=== PATIENT | male | born 1945 | race Caucasian/White ===

== ENCOUNTER 2021-12-31 08:25 | Inpatient (IN) | payer OTHER ==
[2021-12-31] MEDS ORDERED: ACETAMINOPHEN 325 MG TABLET (FP) PO ONE (09:21)
[2021-12-31] MEDS ORDERED: ACETAMINOPHEN 325 MG TABLET (FP) ONE (09:24)
[2021-12-31] MEDS ORDERED: LIDOCAINE 5% TOPICAL PATCH TP ONE (10:03)
[2021-12-31] MEDS ORDERED: LIDOCAINE 5% TOPICAL PATCH ONE (10:11)
[2021-12-31 10:25] LABS: PH,URINE 7.5 (5.0-8.0); URINE APPEARANCE CLOUDY; URINE BILIRUBIN NEGATIVE (NEGATIVE); URINE COLOR YELLOW; URINE GLUCOSE (UA) NEGATIVE (NEGATIVE); URINE KETONE NEGATIVE (NEGATIVE); URINE LEUK ESTERASE NEGATIVE (NEGATIVE); URINE NITRITE NEGATIVE (NEGATIVE); URINE PROTEIN NEGATIVE (NEGATIVE); URINE UROBILINOGEN 0.2 mg/dL (0.2-1.0)
[2021-12-31] MEDS ORDERED: SODIUM CHLORIDE 0.9% 500 ML INFUS.BAG IV ONE (10:29)
[2021-12-31 11:17] LABS: BASO % 0.5 % (0-2.0); EOS % 2.8 % (0-4.5); HEMATOCRIT 38.4 % (35.4-49); HEMOGLOBIN 13.4 GM/dL (11.7-16.9); LYMPH % 18.1 % (8-40); MCH 32.3 pg (25.7-33.7); MCHC 35.1 g/dl (32.0-35.9); MEAN CELL VOLUME 92.2 fl (80-96); MEAN PLT VOLUME 7.5 fl (7.5-11.1); NEUT % 70.6 % (42.8-82.8); PLATELET COUNT 172 10^3/uL (134-434); RBC 4.16 M/mm3 (4.00-5.60); RDW 14.1 % (11.9-15.9); WHITE BLOOD COUNT 9.2 K/mm3 (4.0-10.0)
[2021-12-31 11:40] LABS: BLOOD UREA NITROGEN 20.5 mg/dL (7-18); CALCIUM 9.1 mg/dL (8.5-10.1)
[2021-12-31 11:45] LABS: BILIRUBIN,TOTAL 0.7 mg/dL (0.2-1); TOT PROT 6.8 g/dl (6.4-8.2)
[2021-12-31] MEDS: ENOXAPARIN NA (PORCINE) 40 MG/0.4 ML DISP.SYRIN SQ SCH (14:40)
[2021-12-31] MEDS ORDERED: ENOXAPARIN NA (PORCINE) 40 MG/0.4 ML DISP.SYRIN SQ ONE (15:54)
[2021-12-31 17:20] LABS: MAGNESIUM 2.3 mg/dL (1.8-2.4)
[2021-12-31] MEDS ORDERED: LIDOCAINE PATCH REMOVAL MC ONE (22:00)
[2021-12-31] MEDS: clonazePAM 0.5 MG TABLET PO SCH (22:31)
[2021-12-31] MEDS: ATORVASTATIN CA 20 MG TABLET (FP) PO SCH (22:31)
[2021-12-31] MEDS: METOPROLOL TARTRATE 50 MG TABLET (FP) PO SCH (22:32)
[2022-01-01 03:38] VITALS: BMI 23.5
[2022-01-01] MEDS: TAMSULOSIN HCL 0.4 MG CAP PO SCH (08:20)
[2022-01-01 09:10] LABS: BASO % 0.5 % (0-2.0); EOS % 0.9 % (0-4.5); HEMATOCRIT 39.6 % (35.4-49); HEMOGLOBIN 13.8 GM/dL (11.7-16.9); LYMPH % 13.9 % (8-40); MEAN CELL VOLUME 91.6 fl (80-96); MEAN PLT VOLUME 7.6 fl (7.5-11.1); MONO % 9.4 % (3.8-10.2); NEUT % 75.3 % (42.8-82.8); PLATELET COUNT 202 10^3/uL (134-434); RBC 4.32 M/mm3 (4.00-5.60); RDW 14.3 % (11.9-15.9); WHITE BLOOD COUNT 11.3 K/mm3 (4.0-10.0)
[2022-01-01] MEDS: ENOXAPARIN NA (PORCINE) 40 MG/0.4 ML DISP.SYRIN SQ SCH (09:39)
[2022-01-01] MEDS: PANTOPRAZOLE 40 MG TABLET PO SCH (09:39)
[2022-01-01] MEDS: METOPROLOL TARTRATE 50 MG TABLET (FP) PO SCH ×2 (09:39→21:39)
[2022-01-01 10:20] LABS: BLOOD UREA NITROGEN 19.3 mg/dL (7-18)
[2022-01-01 10:21] LABS: ALBUMIN 4.5 g/dl (3.4-5.0)
[2022-01-01 10:23] LABS: CALCIUM 10.3 mg/dL (8.5-10.1); MAGNESIUM 2.6 mg/dL (1.8-2.4)
[2022-01-01 10:25] LABS: BILIRUBIN,TOTAL 1.1 mg/dL (0.2-1); TOT PROT 7.7 g/dl (6.4-8.2)
[2022-01-01 14:30] LABS: BILIRUBIN,DIRECT 0.2 mg/dL (0.0-0.2)
[2022-01-01] MEDS: clonazePAM 0.5 MG TABLET PO SCH (21:39)
[2022-01-01] MEDS: ATORVASTATIN CA 20 MG TABLET (FP) PO SCH (21:39)
[2022-01-02] MEDS: TAMSULOSIN HCL 0.4 MG CAP PO SCH (08:58)
[2022-01-02] MEDS: POLYETHYLENE GLYCOL (HEALTHYLAX) 3350 17 GM PACKET PO PRN (09:57)
[2022-01-02] MEDS: METOPROLOL TARTRATE 50 MG TABLET (FP) PO SCH ×2 (09:57→21:08)
[2022-01-02] MEDS: PANTOPRAZOLE 40 MG TABLET PO SCH (09:57)
[2022-01-02] MEDS: ENOXAPARIN NA (PORCINE) 40 MG/0.4 ML DISP.SYRIN SQ SCH (09:58)
[2022-01-02 10:58] LABS: BASO % 0.4 % (0-2.0); EOS % 0.3 % (0-4.5); HEMATOCRIT 45.3 % (35.4-49); HEMOGLOBIN 15.8 GM/dL (11.7-16.9); MCH 32.1 pg (25.7-33.7); MCHC 34.9 g/dl (32.0-35.9); MEAN CELL VOLUME 92.1 fl (80-96); MEAN PLT VOLUME 7.6 fl (7.5-11.1); MONO % 6.8 % (3.8-10.2); NEUT % 82.5 % (42.8-82.8); PLATELET COUNT 216 10^3/uL (134-434); RBC 4.92 M/mm3 (4.00-5.60); RDW 14.6 % (11.9-15.9); WHITE BLOOD COUNT 14.3 K/mm3 (4.0-10.0)
[2022-01-02] MEDS: amLODIPine BESYLATE 10 MG TABLET (FP) PO SCH (11:21)
[2022-01-02 11:31] LABS: ALBUMIN 4.5 g/dl (3.4-5.0); BLOOD UREA NITROGEN 26.2 mg/dL (7-18); CALCIUM 10.2 mg/dL (8.5-10.1); MAGNESIUM 2.5 mg/dL (1.8-2.4)
[2022-01-02 11:34] LABS: CREATININE 1.1 mg/dL (0.55-1.3); PHOSPHOROUS 2.9 mg/dL (2.5-4.9)
[2022-01-02 11:35] LABS: TOT PROT 8.1 g/dl (6.4-8.2)
[2022-01-02 11:36] LABS: BILIRUBIN,TOTAL 0.8 mg/dL (0.2-1)
[2022-01-02] MEDS ORDERED: LACTATED RINGERS SOLUTION 1,000 ML/1,000 ML INFUS.BAG IV SCH (15:30)
[2022-01-02 17:02] LABS: LACTIC ACID 2.7 mmol/L (0.4-2.0)
[2022-01-02] MEDS ORDERED: LACTATED RINGERS SOLUTION 1000 ML INFUS.BAG IV ONE ×2 (17:15→18:21)
[2022-01-02 19:11] LABS: LACTIC ACID 4.2 mmol/L (0.4-2.0)
[2022-01-02] MEDS: LACTATED RINGERS SOLUTION 1,000 ML/1,000 ML INFUS.BAG IV SCH (20:49)
[2022-01-02] MEDS: ERTAPENEM SODIUM 1 GM in SODIUM CHLORIDE 50 ML IVPB SCH (21:00)
[2022-01-02] MEDS: ATORVASTATIN CA 20 MG TABLET (FP) PO SCH (21:08)
[2022-01-02] MEDS: clonazePAM 0.5 MG TABLET PO SCH (21:08)
[2022-01-02] MEDS ORDERED: DOXYCYCLINE HYCLATE 100 MG VIAL ONE (21:09)
[2022-01-02] MEDS: SENNOSIDES 8.6MG TABLET (FP) PO SCH (21:10)
[2022-01-02] MEDS ORDERED: DEXTROSE 5%-WATER 100 ML IVPB ONE (21:10)
[2022-01-02] MEDS: hydrALAZINE HCL 25 MG TABLET (FP) PO SCH (21:10)
[2022-01-02] MEDS: DOXYCYCLINE INJECTION 100 MG in DEXTROSE 5%-WATER 100 ML IVPB SCH (21:54)
[2022-01-03] MEDS: hydrALAZINE HCL 25 MG TABLET (FP) PO SCH ×3 (05:18→22:18)
[2022-01-03] MEDS: LACTATED RINGERS SOLUTION 1,000 ML/1,000 ML INFUS.BAG IV SCH ×2 (09:32→22:03)
[2022-01-03] MEDS ORDERED: DOXYCYCLINE HYCLATE 100 MG VIAL ONE ×2 (10:10→22:05)
[2022-01-03] MEDS ORDERED: DEXTROSE 5%-WATER 100 ML IVPB ONE ×2 (10:10→22:05)
[2022-01-03] MEDS: DOXYCYCLINE INJECTION 100 MG in DEXTROSE 5%-WATER 100 ML IVPB SCH ×2 (10:12→22:18)
[2022-01-03] MEDS: PANTOPRAZOLE 40 MG TABLET PO SCH (10:12)
[2022-01-03] MEDS: amLODIPine BESYLATE 10 MG TABLET (FP) PO SCH (10:12)
[2022-01-03] MEDS: TAMSULOSIN HCL 0.4 MG CAP PO SCH (10:12)
[2022-01-03] MEDS: METOPROLOL TARTRATE 50 MG TABLET (FP) PO SCH ×2 (10:12→22:18)
[2022-01-03 10:47] LABS: HEMATOCRIT 43.2 % (35.4-49); HEMOGLOBIN 15.2 GM/dL (11.7-16.9); MCH 32.1 pg (25.7-33.7); MCHC 35.3 g/dl (32.0-35.9); MEAN PLT VOLUME 7.5 fl (7.5-11.1); PLATELET COUNT 213 10^3/uL (134-434); RBC 4.75 M/mm3 (4.00-5.60); RDW 14.6 % (11.9-15.9); WHITE BLOOD COUNT 15.6 K/mm3 (4.0-10.0)
[2022-01-03] MEDS: ENOXAPARIN NA (PORCINE) 40 MG/0.4 ML DISP.SYRIN SQ SCH (10:48)
[2022-01-03] MEDS: ERTAPENEM SODIUM 1 GM in SODIUM CHLORIDE 50 ML IVPB SCH (10:48)
[2022-01-03 11:48] LABS: ALBUMIN 4.1 g/dl (3.4-5.0); BLOOD UREA NITROGEN 33.3 mg/dL (7-18); CALCIUM 9.8 mg/dL (8.5-10.1); MAGNESIUM 2.4 mg/dL (1.8-2.4)
[2022-01-03 11:52] LABS: PHOSPHOROUS 2.8 mg/dL (2.5-4.9)
[2022-01-03 11:54] LABS: BILIRUBIN,TOTAL 0.8 mg/dL (0.2-1); TOT PROT 7.5 g/dl (6.4-8.2)
[2022-01-03] MEDS: clonazePAM 0.5 MG TABLET PO SCH (22:17)
[2022-01-03] MEDS: SENNOSIDES 8.6MG TABLET (FP) PO SCH (22:17)
[2022-01-03] MEDS: ATORVASTATIN CA 20 MG TABLET (FP) PO SCH (22:18)
[2022-01-04] MEDS: hydrALAZINE HCL 25 MG TABLET (FP) PO SCH ×3 (06:13→21:58)
[2022-01-04] MEDS: LACTATED RINGERS SOLUTION 1,000 ML/1,000 ML INFUS.BAG IV SCH (08:07)
[2022-01-04] MEDS ORDERED: DOXYCYCLINE HYCLATE 100 MG VIAL ONE ×2 (09:28→21:44)
[2022-01-04] MEDS ORDERED: DEXTROSE 5%-WATER 100 ML IVPB ONE ×2 (09:28→21:44)
[2022-01-04] MEDS: DOXYCYCLINE INJECTION 100 MG in DEXTROSE 5%-WATER 100 ML IVPB SCH ×2 (09:31→22:02)
[2022-01-04] MEDS: ERTAPENEM SODIUM 1 GM in SODIUM CHLORIDE 50 ML IVPB SCH (09:32)
[2022-01-04] MEDS: ENOXAPARIN NA (PORCINE) 40 MG/0.4 ML DISP.SYRIN SQ SCH (09:32)
[2022-01-04] MEDS: TAMSULOSIN HCL 0.4 MG CAP PO SCH (09:32)
[2022-01-04] MEDS: amLODIPine BESYLATE 10 MG TABLET (FP) PO SCH (09:32)
[2022-01-04] MEDS: METOPROLOL TARTRATE 50 MG TABLET (FP) PO SCH ×2 (09:32→21:59)
[2022-01-04] MEDS: PANTOPRAZOLE 40 MG TABLET PO SCH (09:32)
[2022-01-04 09:57] LABS: BASO % 0.8 % (0-2.0); EOS % 4.6 % (0-4.5); HEMATOCRIT 40.8 % (35.4-49); LYMPH % 15.8 % (8-40); MCH 31.6 pg (25.7-33.7); MCHC 34.4 g/dl (32.0-35.9); MEAN PLT VOLUME 7.8 fl (7.5-11.1); MONO % 8.8 % (3.8-10.2); PLATELET COUNT 218 10^3/uL (134-434); RBC 4.44 M/mm3 (4.00-5.60); RDW 14.3 % (11.9-15.9); WHITE BLOOD COUNT 13.8 K/mm3 (4.0-10.0)
[2022-01-04 10:17] LABS: BLOOD UREA NITROGEN 35.5 mg/dL (7-18)
[2022-01-04 10:20] LABS: CALCIUM 9.3 mg/dL (8.5-10.1); CREATININE 1.1 mg/dL (0.55-1.3); MAGNESIUM 2.2 mg/dL (1.8-2.4)
[2022-01-04] MEDS: clonazePAM 0.5 MG TABLET PO SCH (21:59)
[2022-01-04] MEDS: SENNOSIDES 8.6MG TABLET (FP) PO SCH (21:59)
[2022-01-04] MEDS: ATORVASTATIN CA 20 MG TABLET (FP) PO SCH (21:59)
[2022-01-05] MEDS: LACTATED RINGERS SOLUTION 1,000 ML/1,000 ML INFUS.BAG IV SCH ×3 (02:19→20:50)
[2022-01-05] MEDS: hydrALAZINE HCL 25 MG TABLET (FP) PO SCH ×3 (06:04→21:14)
[2022-01-05] MEDS: TAMSULOSIN HCL 0.4 MG CAP PO SCH (09:04)
[2022-01-05] MEDS ORDERED: DEXTROSE 5%-WATER 100 ML IVPB ONE ×2 (09:58→20:57)
[2022-01-05] MEDS ORDERED: DOXYCYCLINE HYCLATE 100 MG VIAL ONE ×2 (09:58→20:57)
[2022-01-05 10:02] LABS: BASO % 0.6 % (0-2.0); EOS % 6.9 % (0-4.5); HEMATOCRIT 40.1 % (35.4-49); HEMOGLOBIN 14.1 GM/dL (11.7-16.9); LYMPH % 18.2 % (8-40); MCH 31.8 pg (25.7-33.7); MCHC 35.1 g/dl (32.0-35.9); MEAN CELL VOLUME 90.7 fl (80-96); MEAN PLT VOLUME 7.7 fl (7.5-11.1); MONO % 6.6 % (3.8-10.2); NEUT % 67.7 % (42.8-82.8); PLATELET COUNT 211 10^3/uL (134-434); RBC 4.42 M/mm3 (4.00-5.60); RDW 14.5 % (11.9-15.9); WHITE BLOOD COUNT 11.3 K/mm3 (4.0-10.0)
[2022-01-05] MEDS: DOXYCYCLINE INJECTION 100 MG in DEXTROSE 5%-WATER 100 ML IVPB SCH ×2 (10:02→21:14)
[2022-01-05] MEDS: ENOXAPARIN NA (PORCINE) 40 MG/0.4 ML DISP.SYRIN SQ SCH (10:04)
[2022-01-05] MEDS: PANTOPRAZOLE 40 MG TABLET PO SCH (10:04)
[2022-01-05] MEDS: POLYETHYLENE GLYCOL (HEALTHYLAX) 3350 17 GM PACKET PO PRN (10:04)
[2022-01-05] MEDS: METOPROLOL TARTRATE 50 MG TABLET (FP) PO SCH ×2 (10:04→21:14)
[2022-01-05] MEDS: amLODIPine BESYLATE 10 MG TABLET (FP) PO SCH (10:04)
[2022-01-05] MEDS: ERTAPENEM SODIUM 1 GM in SODIUM CHLORIDE 50 ML IVPB SCH (10:05)
[2022-01-05 10:21] LABS: BLOOD UREA NITROGEN 27.7 mg/dL (7-18); CALCIUM 9.5 mg/dL (8.5-10.1); MAGNESIUM 2.2 mg/dL (1.8-2.4)
[2022-01-05 10:24] LABS: CREATININE 1.1 mg/dL (0.55-1.3); PHOSPHOROUS 3.2 mg/dL (2.5-4.9)
[2022-01-05] MEDS ORDERED: POTASSIUM CHLORIDE TABS 20 MEQ TABLET.ER (FP) PO ONE (16:57)
[2022-01-05] MEDS: SENNOSIDES 8.6MG TABLET (FP) PO SCH (21:14)
[2022-01-05] MEDS: ATORVASTATIN CA 20 MG TABLET (FP) PO SCH (21:14)
[2022-01-05] MEDS: clonazePAM 0.5 MG TABLET PO SCH (21:14)
[2022-01-06] MEDS: hydrALAZINE HCL 25 MG TABLET (FP) PO SCH ×3 (06:10→21:33)
[2022-01-06 08:43] LABS: BASO % 0.7 % (0-2.0); HEMATOCRIT 40.3 % (35.4-49); MCH 31.8 pg (25.7-33.7); MCHC 34.7 g/dl (32.0-35.9); MEAN CELL VOLUME 91.5 fl (80-96); MEAN PLT VOLUME 7.7 fl (7.5-11.1); MONO % 9.4 % (3.8-10.2); NEUT % 64.9 % (42.8-82.8); PLATELET COUNT 210 10^3/uL (134-434); RBC 4.41 M/mm3 (4.00-5.60); RDW 14.1 % (11.9-15.9); WHITE BLOOD COUNT 11.2 K/mm3 (4.0-10.0)
[2022-01-06 09:20] LABS: CALCIUM 9.5 mg/dL (8.5-10.1); MAGNESIUM 2.3 mg/dL (1.8-2.4)
[2022-01-06 09:23] LABS: CREATININE 0.9 mg/dL (0.55-1.3); PHOSPHOROUS 3.5 mg/dL (2.5-4.9)
[2022-01-06] MEDS ORDERED: DOXYCYCLINE HYCLATE 100 MG VIAL ONE ×2 (09:31→21:16)
[2022-01-06] MEDS ORDERED: DEXTROSE 5%-WATER 100 ML IVPB ONE ×2 (09:31→21:17)
[2022-01-06] MEDS: PANTOPRAZOLE 40 MG TABLET PO SCH (09:32)
[2022-01-06] MEDS: ENOXAPARIN NA (PORCINE) 40 MG/0.4 ML DISP.SYRIN SQ SCH (09:33)
[2022-01-06] MEDS: METOPROLOL TARTRATE 50 MG TABLET (FP) PO SCH ×2 (09:33→21:33)
[2022-01-06] MEDS: TAMSULOSIN HCL 0.4 MG CAP PO SCH (09:33)
[2022-01-06] MEDS: DOXYCYCLINE INJECTION 100 MG in DEXTROSE 5%-WATER 100 ML IVPB SCH ×2 (09:33→21:33)
[2022-01-06] MEDS: amLODIPine BESYLATE 10 MG TABLET (FP) PO SCH (09:33)
[2022-01-06] MEDS: ERTAPENEM SODIUM 1 GM in SODIUM CHLORIDE 50 ML IVPB SCH (11:05)
[2022-01-06] MEDS: LACTATED RINGERS SOLUTION 1,000 ML/1,000 ML INFUS.BAG IV SCH ×2 (11:25→12:38)
[2022-01-06] MEDS ORDERED: POTASSIUM CHLORIDE TABS 20 MEQ TABLET.ER (FP) PO ONE (11:46)
[2022-01-06] MEDS: SENNOSIDES 8.6MG TABLET (FP) PO SCH (21:33)
[2022-01-06] MEDS: ATORVASTATIN CA 20 MG TABLET (FP) PO SCH (21:33)
[2022-01-06] MEDS: clonazePAM 0.5 MG TABLET PO SCH (21:33)
[2022-01-07] MEDS: hydrALAZINE HCL 25 MG TABLET (FP) PO SCH ×3 (05:13→22:45)
[2022-01-07] MEDS ORDERED: DEXTROSE 5%-WATER 100 ML IVPB ONE ×2 (09:22→22:22)
[2022-01-07] MEDS ORDERED: DOXYCYCLINE HYCLATE 100 MG VIAL ONE ×2 (09:22→22:22)
[2022-01-07] MEDS: METOPROLOL TARTRATE 50 MG TABLET (FP) PO SCH ×2 (09:33→22:46)
[2022-01-07] MEDS: TAMSULOSIN HCL 0.4 MG CAP PO SCH (09:33)
[2022-01-07] MEDS: amLODIPine BESYLATE 10 MG TABLET (FP) PO SCH (09:33)
[2022-01-07] MEDS: PANTOPRAZOLE 40 MG TABLET PO SCH (09:33)
[2022-01-07] MEDS: ENOXAPARIN NA (PORCINE) 40 MG/0.4 ML DISP.SYRIN SQ SCH (09:34)
[2022-01-07] MEDS: DOXYCYCLINE INJECTION 100 MG in DEXTROSE 5%-WATER 100 ML IVPB SCH ×2 (09:34→22:46)
[2022-01-07 10:27] LABS: HEMATOCRIT 41.6 % (35.4-49); HEMOGLOBIN 14.1 GM/dL (11.7-16.9); MCH 31.3 pg (25.7-33.7); MEAN CELL VOLUME 92.2 fl (80-96); MEAN PLT VOLUME 8.1 fl (7.5-11.1); PLATELET COUNT 226 10^3/uL (134-434); RBC 4.52 M/mm3 (4.00-5.60); RDW 14.1 % (11.9-15.9); WHITE BLOOD COUNT 11.4 K/mm3 (4.0-10.0)
[2022-01-07] MEDS: ERTAPENEM SODIUM 1 GM in SODIUM CHLORIDE 50 ML IVPB SCH (11:01)
[2022-01-07 11:02] LABS: CALCIUM 9.8 mg/dL (8.5-10.1)
[2022-01-07 11:03] LABS: BLOOD UREA NITROGEN 23.4 mg/dL (7-18)
[2022-01-07 11:06] LABS: CREATININE 0.9 mg/dL (0.55-1.3)
[2022-01-07] MEDS: LACTATED RINGERS SOLUTION 1,000 ML/1,000 ML INFUS.BAG IV SCH (18:39)
[2022-01-07] MEDS: ATORVASTATIN CA 20 MG TABLET (FP) PO SCH (22:45)
[2022-01-07] MEDS: SENNOSIDES 8.6MG TABLET (FP) PO SCH (22:46)
[2022-01-08] MEDS: hydrALAZINE HCL 25 MG TABLET (FP) PO SCH ×3 (06:22→21:43)
[2022-01-08] MEDS ORDERED: DOXYCYCLINE HYCLATE 100 MG VIAL ONE ×2 (09:29→21:31)
[2022-01-08] MEDS ORDERED: DEXTROSE 5%-WATER 100 ML IVPB ONE ×2 (09:30→21:31)
[2022-01-08] MEDS: amLODIPine BESYLATE 10 MG TABLET (FP) PO SCH (09:44)
[2022-01-08] MEDS: ENOXAPARIN NA (PORCINE) 40 MG/0.4 ML DISP.SYRIN SQ SCH (09:44)
[2022-01-08] MEDS: ERTAPENEM SODIUM 1 GM in SODIUM CHLORIDE 50 ML IVPB SCH (09:44)
[2022-01-08] MEDS: METOPROLOL TARTRATE 50 MG TABLET (FP) PO SCH ×2 (09:45→21:43)
[2022-01-08] MEDS: PANTOPRAZOLE 40 MG TABLET PO SCH (09:45)
[2022-01-08] MEDS: TAMSULOSIN HCL 0.4 MG CAP PO SCH (09:45)
[2022-01-08 09:59] LABS: HEMATOCRIT 42.1 % (35.4-49); HEMOGLOBIN 14.3 GM/dL (11.7-16.9); MCH 31.2 pg (25.7-33.7); MEAN CELL VOLUME 91.9 fl (80-96); MEAN PLT VOLUME 7.7 fl (7.5-11.1); PLATELET COUNT 233 10^3/uL (134-434); RBC 4.58 M/mm3 (4.00-5.60); RDW 14.4 % (11.9-15.9); WHITE BLOOD COUNT 13.5 K/mm3 (4.0-10.0)
[2022-01-08 10:15] LABS: CALCIUM 9.7 mg/dL (8.5-10.1)
[2022-01-08 10:16] LABS: ALBUMIN 3.8 g/dl (3.4-5.0); BLOOD UREA NITROGEN 21.3 mg/dL (7-18)
[2022-01-08 10:19] LABS: CREATININE 0.9 mg/dL (0.55-1.3)
[2022-01-08 10:20] LABS: BILIRUBIN,TOTAL 0.8 mg/dL (0.2-1); TOT PROT 6.8 g/dl (6.4-8.2)
[2022-01-08] MEDS: DOXYCYCLINE INJECTION 100 MG in DEXTROSE 5%-WATER 100 ML IVPB SCH ×2 (10:41→21:44)
[2022-01-08] MEDS: LACTATED RINGERS SOLUTION 1,000 ML/1,000 ML INFUS.BAG IV SCH (13:14)
[2022-01-08] MEDS: SENNOSIDES 8.6MG TABLET (FP) PO SCH (21:43)
[2022-01-08] MEDS: ATORVASTATIN CA 20 MG TABLET (FP) PO SCH (21:43)
[2022-01-09] MEDS: hydrALAZINE HCL 25 MG TABLET (FP) PO SCH ×3 (06:07→21:03)
[2022-01-09 08:31] LABS: BASO % 0.6 % (0-2.0); EOS % 3.6 % (0-4.5); HEMATOCRIT 39.9 % (35.4-49); HEMOGLOBIN 13.7 GM/dL (11.7-16.9); LYMPH % 13.2 % (8-40); MCH 31.6 pg (25.7-33.7); MCHC 34.3 g/dl (32.0-35.9); MEAN CELL VOLUME 92.1 fl (80-96); MONO % 8.2 % (3.8-10.2); NEUT % 74.4 % (42.8-82.8); PLATELET COUNT 203 10^3/uL (134-434); RBC 4.34 M/mm3 (4.00-5.60); RDW 14.2 % (11.9-15.9); WHITE BLOOD COUNT 11.2 K/mm3 (4.0-10.0)
[2022-01-09 08:45] LABS: CALCIUM 9.7 mg/dL (8.5-10.1)
[2022-01-09 08:46] LABS: BLOOD UREA NITROGEN 27.4 mg/dL (7-18); MAGNESIUM 2.3 mg/dL (1.8-2.4)
[2022-01-09 08:49] LABS: CREATININE 0.9 mg/dL (0.55-1.3); PHOSPHOROUS 3.3 mg/dL (2.5-4.9)
[2022-01-09] MEDS: TAMSULOSIN HCL 0.4 MG CAP PO SCH (09:29)
[2022-01-09] MEDS: PANTOPRAZOLE 40 MG TABLET PO SCH (09:30)
[2022-01-09] MEDS: ENOXAPARIN NA (PORCINE) 40 MG/0.4 ML DISP.SYRIN SQ SCH (09:30)
[2022-01-09] MEDS: amLODIPine BESYLATE 10 MG TABLET (FP) PO SCH (09:30)
[2022-01-09] MEDS: ERTAPENEM SODIUM 1 GM in SODIUM CHLORIDE 50 ML IVPB SCH (09:30)
[2022-01-09] MEDS: METOPROLOL TARTRATE 50 MG TABLET (FP) PO SCH ×2 (09:30→21:03)
[2022-01-09] MEDS ORDERED: DOXYCYCLINE HYCLATE 100 MG VIAL ONE (10:18)
[2022-01-09] MEDS ORDERED: DEXTROSE 5%-WATER 100 ML IVPB ONE (10:18)
[2022-01-09] MEDS: DOXYCYCLINE INJECTION 100 MG in DEXTROSE 5%-WATER 100 ML IVPB SCH (10:35)
[2022-01-09] MEDS: SENNOSIDES 8.6MG TABLET (FP) PO SCH (21:03)
[2022-01-09] MEDS: ATORVASTATIN CA 20 MG TABLET (FP) PO SCH (21:03)
[2022-01-10 02:23] LABS: PH,URINE 6.5 (5.0-8.0); URINE APPEARANCE CLEAR; URINE BILIRUBIN NEGATIVE (NEGATIVE); URINE COLOR YELLOW; URINE GLUCOSE (UA) NEGATIVE (NEGATIVE); URINE KETONE NEGATIVE (NEGATIVE); URINE LEUK ESTERASE NEGATIVE (NEGATIVE); URINE NITRITE NEGATIVE (NEGATIVE); URINE PROTEIN NEGATIVE (NEGATIVE); URINE UROBILINOGEN 0.2 mg/dL (0.2-1.0)
[2022-01-10] MEDS: hydrALAZINE HCL 25 MG TABLET (FP) PO SCH ×2 (05:39→14:13)
[2022-01-10] MEDS: amLODIPine BESYLATE 10 MG TABLET (FP) PO SCH (09:11)
[2022-01-10] MEDS: PANTOPRAZOLE 40 MG TABLET PO SCH (09:11)
[2022-01-10] MEDS: ENOXAPARIN NA (PORCINE) 40 MG/0.4 ML DISP.SYRIN SQ SCH (09:11)
[2022-01-10] MEDS: TAMSULOSIN HCL 0.4 MG CAP PO SCH (09:11)
[2022-01-10] MEDS: METOPROLOL TARTRATE 50 MG TABLET (FP) PO SCH (09:11)
[2022-01-10 14:11] VITALS: BP 119/71; PULSE 79
[2022-01-10 14:23] VITALS: TEMP 98
== END 2022-01-10 16:00 | disposition home or self-care (01) | DRG 871 ==
LOC: JER 08:25 → JERBED 13:55 → J6S 21:02 → OBSVTOIN 01-03 09:20
PROVIDERS: ADMIT Internal Medicine; ATTEND Internal Medicine
DX: A41.89 Other specified sepsis (principal); J18.9 Pneumonia, unspecified organism; I42.1 Obstructive hypertrophic cardiomyopathy; S60.222A Contusion of left hand, initial encounter; S60.221A Contusion of right hand, initial encounter; F03.90 Unspecified dementia, unspecified severity, without behavioral disturbance, psychotic disturbance, mood disturbance, and anxiety; I49.3 Ventricular premature depolarization; I10 Essential (primary) hypertension; E78.5 Hyperlipidemia, unspecified; K59.00 Constipation, unspecified; D72.829 Elevated white blood cell count, unspecified; H91.93 Unspecified hearing loss, bilateral; I34.0 Nonrheumatic mitral (valve) insufficiency; W01.0XXA Fall on same level from slipping, tripping and stumbling without subsequent striking against object, initial encounter; Y92.098 Other place in other non-institutional residence as the place of occurrence of the external cause
CPT/HCPCS: 0241U-QW; 36415; 70450-TC; 71045-TC-FY; 71111-TC-FY; 71250-TC; 72125-TC; 80048; 80053; 81003; 82248; 82550; 82607; 83605; 83735; 84100; 84443; 85025; 85027; 87040; 87086; 93005; 93010; 93306-TC; 94010; 97116-GP; 97162-GP; 99285-25; C9803-CS; G0378; U0003; U0005

== ENCOUNTER 2022-01-12 15:40 | Inpatient (IN) | payer OTHER ==
[2022-01-12 16:32] VITALS: BMI 29.5
[2022-01-12] MEDS ORDERED: SODIUM CHLORIDE 0.9% 500 ML INFUS.BAG IV ONE ×2 (17:02→18:31)
[2022-01-12 17:06] LABS: EOS % 2.5 % (0-4.5); HEMATOCRIT 37.9 % (35.4-49); HEMOGLOBIN 12.7 GM/dL (11.7-16.9); LYMPH % 12.3 % (8-40); MCH 31.1 pg (25.7-33.7); MCHC 33.6 g/dl (32.0-35.9); MEAN CELL VOLUME 92.4 fl (80-96); MEAN PLT VOLUME 8.1 fl (7.5-11.1); NEUT % 76.2 % (42.8-82.8); PLATELET COUNT 238 10^3/uL (134-434); RDW 13.8 % (11.9-15.9); URINE APPEARANCE CLEAR; URINE BILIRUBIN NEGATIVE (NEGATIVE); URINE COLOR YELLOW; URINE GLUCOSE (UA) NEGATIVE (NEGATIVE); URINE KETONE NEGATIVE (NEGATIVE); URINE LEUK ESTERASE NEGATIVE (NEGATIVE); URINE NITRITE NEGATIVE (NEGATIVE); URINE PROTEIN NEGATIVE (NEGATIVE); URINE UROBILINOGEN 0.2 mg/dL (0.2-1.0); WHITE BLOOD COUNT 12.3 K/mm3 (4.0-10.0)
[2022-01-12 17:19] LABS: INR 1.16 (0.83-1.09); PROTHROMBIN TIME (PATIENT) 13.4 SEC (9.7-13.0)
[2022-01-12 17:28] LABS: CALCIUM 9.6 mg/dL (8.5-10.1)
[2022-01-12 17:29] LABS: ALBUMIN 3.7 g/dl (3.4-5.0); MAGNESIUM 2.6 mg/dL (1.8-2.4)
[2022-01-12 17:32] LABS: CREATININE 1.9 mg/dL (0.55-1.3)
[2022-01-12 17:34] LABS: BILIRUBIN,TOTAL 0.6 mg/dL (0.2-1); TOT PROT 6.5 g/dl (6.4-8.2)
[2022-01-12 17:39] LABS: BLOOD UREA NITROGEN 53.2 mg/dL (7-18)
[2022-01-12] MEDS ORDERED: ACETAMINOPHEN 325 MG TABLET (FP) PO PRN (21:24)
[2022-01-12] MEDS ORDERED: SODIUM CHLORIDE 1,000 ML IV SCH (21:45)
[2022-01-12] MEDS ORDERED: DOCUSATE SODIUM 100 MG CAPSULE (FP) PO SCH (22:00)
[2022-01-12] MEDS ORDERED: METOPROLOL TARTRATE 50 MG TABLET (FP) PO SCH (22:00)
[2022-01-12] MEDS ORDERED: ATORVASTATIN CA 20 MG TABLET (FP) ONE (22:51)
[2022-01-12] MEDS ORDERED: MELATONIN 5 MG TABLETS ONE (22:51)
[2022-01-12] MEDS ORDERED: METOPROLOL TARTRATE 50 MG TABLET (FP) ONE (22:51)
[2022-01-12] MEDS ORDERED: DOCUSATE SODIUM 100 MG CAPSULE (FP) PO ONE (22:52)
[2022-01-12] MEDS ORDERED: HEPARIN NA (PORCINE) 5,000 UNITS/ML 1ML VIAL ONE (22:52)
[2022-01-12] MEDS: HEPARIN NA (PORCINE) 5,000 UNITS/ML 1ML VIAL SQ SCH ×2 (23:06→23:10)
[2022-01-12] MEDS: MELATONIN 5 MG TABLETS PO SCH (23:07)
[2022-01-12] MEDS: ATORVASTATIN CA 20 MG TABLET (FP) PO SCH (23:07)
[2022-01-12] MEDS: METOPROLOL TARTRATE 50 MG TABLET (FP) PO SCH (23:07)
[2022-01-13] MEDS ORDERED: HEPARIN NA (PORCINE) 5,000 UNITS/ML 1ML VIAL ONE ×2 (06:18→13:40)
[2022-01-13] MEDS: HEPARIN NA (PORCINE) 5,000 UNITS/ML 1ML VIAL SQ SCH ×3 (06:26→21:24)
[2022-01-13] MEDS ORDERED: LACTATED RINGERS SOLUTION 1,000 ML/1,000 ML INFUS.BAG IV SCH (07:00)
[2022-01-13] MEDS ORDERED: POLYETHYLENE GLYCOL (HEALTHYLAX) 3350 17 GM PACKET PO PRN (07:04)
[2022-01-13] MEDS ORDERED: TAMSULOSIN HCL 0.4 MG CAP ONE (07:47)
[2022-01-13 07:51] LABS: BASO % 0.6 % (0-2.0); EOS % 4.1 % (0-4.5); HEMATOCRIT 35.9 % (35.4-49); LYMPH % 14.9 % (8-40); MCH 30.5 pg (25.7-33.7); MCHC 33.4 g/dl (32.0-35.9); MEAN CELL VOLUME 91.6 fl (80-96); MEAN PLT VOLUME 8.2 fl (7.5-11.1); MONO % 8.4 % (3.8-10.2); PLATELET COUNT 224 10^3/uL (134-434); RBC 3.92 M/mm3 (4.00-5.60); RDW 13.7 % (11.9-15.9); WHITE BLOOD COUNT 11.3 K/mm3 (4.0-10.0)
[2022-01-13] MEDS: TAMSULOSIN HCL 0.4 MG CAP PO SCH (07:55)
[2022-01-13 08:22] LABS: ALBUMIN 3.4 g/dl (3.4-5.0); CALCIUM 9.1 mg/dL (8.5-10.1); MAGNESIUM 2.5 mg/dL (1.8-2.4)
[2022-01-13 08:23] LABS: BLOOD UREA NITROGEN 35.8 mg/dL (7-18)
[2022-01-13 08:26] LABS: BILIRUBIN,TOTAL 0.7 mg/dL (0.2-1); CREATININE 1.3 mg/dL (0.55-1.3)
[2022-01-13] MEDS ORDERED: amLODIPine BESYLATE 10 MG TABLET (FP) PO SCH (10:00)
[2022-01-13] MEDS ORDERED: PANTOPRAZOLE 40 MG TABLET PO ONE (10:30)
[2022-01-13] MEDS ORDERED: ASPIRIN 81 MG CHEWABLE TABLETS ONE (10:31)
[2022-01-13] MEDS ORDERED: amLODIPine BESYLATE 10 MG TABLET (FP) ONE (10:31)
[2022-01-13] MEDS ORDERED: METOPROLOL TARTRATE 50 MG TABLET (FP) ONE (10:31)
[2022-01-13] MEDS: ASPIRIN 81 MG CHEWABLE TABLETS PO SCH (10:54)
[2022-01-13] MEDS: PANTOPRAZOLE 40 MG TABLET PO SCH (10:54)
[2022-01-13] MEDS: amLODIPine BESYLATE 10 MG TABLET (FP) PO SCH ×2 (12:00→13:31)
[2022-01-13] MEDS: METOPROLOL TARTRATE 50 MG TABLET (FP) PO SCH ×3 (12:00→21:23)
[2022-01-13] MEDS: LACTATED RINGERS SOLUTION 1,000 ML/1,000 ML INFUS.BAG IV SCH (15:30)
[2022-01-13] MEDS: ATORVASTATIN CA 20 MG TABLET (FP) PO SCH (21:22)
[2022-01-13] MEDS: MELATONIN 5 MG TABLETS PO SCH (21:23)
[2022-01-14] MEDS: HEPARIN NA (PORCINE) 5,000 UNITS/ML 1ML VIAL SQ SCH ×3 (06:17→21:30)
[2022-01-14] MEDS: TAMSULOSIN HCL 0.4 MG CAP PO SCH (06:17)
[2022-01-14] MEDS: LACTATED RINGERS SOLUTION 1,000 ML/1,000 ML INFUS.BAG IV SCH ×2 (06:21→18:26)
[2022-01-14 06:50] LABS: BASO % 0.7 % (0-2.0); HEMATOCRIT 38.1 % (35.4-49); HEMOGLOBIN 13.2 GM/dL (11.7-16.9); LYMPH % 16.7 % (8-40); MCH 32.1 pg (25.7-33.7); MCHC 34.8 g/dl (32.0-35.9); MEAN CELL VOLUME 92.3 fl (80-96); MEAN PLT VOLUME 9.2 fl (7.5-11.1); MONO % 6.8 % (3.8-10.2); NEUT % 69.8 % (42.8-82.8); PLATELET COUNT 196 10^3/uL (134-434); RBC 4.12 M/mm3 (4.00-5.60); RDW 13.8 % (11.9-15.9); WHITE BLOOD COUNT 10.9 K/mm3 (4.0-10.0)
[2022-01-14 07:10] LABS: BLOOD UREA NITROGEN 18.1 mg/dL (7-18); CALCIUM 9.3 mg/dL (8.5-10.1)
[2022-01-14 07:11] LABS: ALBUMIN 3.4 g/dl (3.4-5.0); MAGNESIUM 2.3 mg/dL (1.8-2.4)
[2022-01-14 07:13] LABS: CREATININE 0.9 mg/dL (0.55-1.3); PHOSPHOROUS 2.5 mg/dL (2.5-4.9)
[2022-01-14 07:14] LABS: BILIRUBIN,TOTAL 0.8 mg/dL (0.2-1); TOT PROT 6.6 g/dl (6.4-8.2)
[2022-01-14] MEDS: METOPROLOL TARTRATE 50 MG TABLET (FP) PO SCH ×2 (09:54→21:30)
[2022-01-14] MEDS: PANTOPRAZOLE 40 MG TABLET PO SCH (09:54)
[2022-01-14] MEDS: amLODIPine BESYLATE 10 MG TABLET (FP) PO SCH (09:54)
[2022-01-14] MEDS: ASPIRIN 81 MG CHEWABLE TABLETS PO SCH (09:54)
[2022-01-14] MEDS: ATORVASTATIN CA 20 MG TABLET (FP) PO SCH (21:30)
[2022-01-14] MEDS: SENNOSIDES 8.6MG TABLET (FP) PO PRN (21:30)
[2022-01-14] MEDS: MELATONIN 5 MG TABLETS PO SCH (21:30)
[2022-01-15] MEDS: LACTATED RINGERS SOLUTION 1,000 ML/1,000 ML INFUS.BAG IV SCH (04:55)
[2022-01-15] MEDS: TAMSULOSIN HCL 0.4 MG CAP PO SCH (06:06)
[2022-01-15] MEDS: HEPARIN NA (PORCINE) 5,000 UNITS/ML 1ML VIAL SQ SCH ×3 (06:06→22:11)
[2022-01-15 08:32] LABS: BASO % 1.1 % (0-2.0); EOS % 4.1 % (0-4.5); HEMATOCRIT 38.8 % (35.4-49); HEMOGLOBIN 13.5 GM/dL (11.7-16.9); LYMPH % 19.1 % (8-40); MCH 31.3 pg (25.7-33.7); MCHC 34.7 g/dl (32.0-35.9); MEAN CELL VOLUME 90.1 fl (80-96); MEAN PLT VOLUME 8.4 fl (7.5-11.1); MONO % 6.7 % (3.8-10.2); PLATELET COUNT 265 10^3/uL (134-434); RDW 13.7 % (11.9-15.9); WHITE BLOOD COUNT 11.5 K/mm3 (4.0-10.0)
[2022-01-15 08:43] LABS: CALCIUM 9.7 mg/dL (8.5-10.1)
[2022-01-15 08:44] LABS: BLOOD UREA NITROGEN 15.2 mg/dL (7-18)
[2022-01-15 08:48] LABS: CREATININE 0.9 mg/dL (0.55-1.3)
[2022-01-15] MEDS: amLODIPine BESYLATE 5 MG TABLET (FP) PO SCH (10:48)
[2022-01-15] MEDS: ASPIRIN 81 MG CHEWABLE TABLETS PO SCH (10:48)
[2022-01-15] MEDS: PANTOPRAZOLE 40 MG TABLET PO SCH (10:48)
[2022-01-15] MEDS: LISINOPRIL 10 MG TABLET PO SCH (10:48)
[2022-01-15] MEDS: METOPROLOL TARTRATE 50 MG TABLET (FP) PO SCH ×2 (10:48→22:11)
[2022-01-15] MEDS: ATORVASTATIN CA 20 MG TABLET (FP) PO SCH (22:11)
[2022-01-15] MEDS: MELATONIN 5 MG TABLETS PO SCH (22:11)
[2022-01-16] MEDS: TAMSULOSIN HCL 0.4 MG CAP PO SCH (06:20)
[2022-01-16] MEDS: HEPARIN NA (PORCINE) 5,000 UNITS/ML 1ML VIAL SQ SCH ×3 (06:20→22:19)
[2022-01-16 06:43] LABS: HEMATOCRIT 33.8 % (35.4-49); HEMOGLOBIN 12.1 GM/dL (11.7-16.9); MCH 31.9 pg (25.7-33.7); MCHC 35.8 g/dl (32.0-35.9); MEAN CELL VOLUME 89.2 fl (80-96); MEAN PLT VOLUME 7.8 fl (7.5-11.1); PLATELET COUNT 265 10^3/uL (134-434); RDW 13.8 % (11.9-15.9); WHITE BLOOD COUNT 10.5 K/mm3 (4.0-10.0)
[2022-01-16 07:04] LABS: CALCIUM 9.2 mg/dL (8.5-10.1)
[2022-01-16] MEDS: ASPIRIN 81 MG CHEWABLE TABLETS PO SCH (10:09)
[2022-01-16] MEDS: PANTOPRAZOLE 40 MG TABLET PO SCH (10:09)
[2022-01-16] MEDS: METOPROLOL TARTRATE 50 MG TABLET (FP) PO SCH ×2 (10:09→22:19)
[2022-01-16] MEDS: LISINOPRIL 10 MG TABLET PO SCH (10:09)
[2022-01-16] MEDS: amLODIPine BESYLATE 5 MG TABLET (FP) PO SCH (10:09)
[2022-01-16] MEDS: ATORVASTATIN CA 20 MG TABLET (FP) PO SCH (22:19)
[2022-01-16] MEDS: MELATONIN 5 MG TABLETS PO SCH (22:20)
[2022-01-17] MEDS: TAMSULOSIN HCL 0.4 MG CAP PO SCH (06:47)
[2022-01-17] MEDS: HEPARIN NA (PORCINE) 5,000 UNITS/ML 1ML VIAL SQ SCH ×3 (06:47→22:26)
[2022-01-17 08:53] LABS: HEMATOCRIT 37.8 % (35.4-49); HEMOGLOBIN 13.2 GM/dL (11.7-16.9); MCH 31.8 pg (25.7-33.7); MEAN CELL VOLUME 90.9 fl (80-96); MEAN PLT VOLUME 8.2 fl (7.5-11.1); PLATELET COUNT 272 10^3/uL (134-434); RBC 4.16 M/mm3 (4.00-5.60); RDW 13.9 % (11.9-15.9); WHITE BLOOD COUNT 10.9 K/mm3 (4.0-10.0)
[2022-01-17 09:23] LABS: CALCIUM 9.6 mg/dL (8.5-10.1)
[2022-01-17 09:24] LABS: BLOOD UREA NITROGEN 22.6 mg/dL (7-18)
[2022-01-17 09:27] LABS: CREATININE 1.1 mg/dL (0.55-1.3)
[2022-01-17] MEDS: amLODIPine BESYLATE 5 MG TABLET (FP) PO SCH (10:09)
[2022-01-17] MEDS: METOPROLOL TARTRATE 50 MG TABLET (FP) PO SCH ×2 (10:09→22:26)
[2022-01-17] MEDS: PANTOPRAZOLE 40 MG TABLET PO SCH (10:09)
[2022-01-17] MEDS: LISINOPRIL 10 MG TABLET PO SCH (10:09)
[2022-01-17] MEDS: ASPIRIN 81 MG CHEWABLE TABLETS PO SCH (10:09)
[2022-01-17] MEDS: MELATONIN 5 MG TABLETS PO SCH (22:26)
[2022-01-17] MEDS: ATORVASTATIN CA 20 MG TABLET (FP) PO SCH (22:26)
[2022-01-18] MEDS: HEPARIN NA (PORCINE) 5,000 UNITS/ML 1ML VIAL SQ SCH ×3 (05:45→22:03)
[2022-01-18] MEDS: TAMSULOSIN HCL 0.4 MG CAP PO SCH (07:03)
[2022-01-18] MEDS: PANTOPRAZOLE 40 MG TABLET PO SCH (10:41)
[2022-01-18] MEDS: METOPROLOL TARTRATE 50 MG TABLET (FP) PO SCH ×2 (10:41→22:04)
[2022-01-18] MEDS: ASPIRIN 81 MG CHEWABLE TABLETS PO SCH (10:41)
[2022-01-18] MEDS: amLODIPine BESYLATE 5 MG TABLET (FP) PO SCH (10:42)
[2022-01-18] MEDS: LISINOPRIL 10 MG TABLET PO SCH (10:42)
[2022-01-18] MEDS ORDERED: BISMUTH SUBSALICYLATE 524 MG/30 ML PO PRN (20:00)
[2022-01-18] MEDS: ATORVASTATIN CA 20 MG TABLET (FP) PO SCH (22:04)
[2022-01-18] MEDS: MELATONIN 5 MG TABLETS PO SCH (22:04)
[2022-01-19] MEDS: HEPARIN NA (PORCINE) 5,000 UNITS/ML 1ML VIAL SQ SCH ×3 (06:18→22:21)
[2022-01-19] MEDS: TAMSULOSIN HCL 0.4 MG CAP PO SCH (06:19)
[2022-01-19] MEDS: amLODIPine BESYLATE 5 MG TABLET (FP) PO SCH (09:12)
[2022-01-19] MEDS: LISINOPRIL 10 MG TABLET PO SCH (09:12)
[2022-01-19] MEDS: ASPIRIN 81 MG CHEWABLE TABLETS PO SCH (09:12)
[2022-01-19] MEDS: PANTOPRAZOLE 40 MG TABLET PO SCH (09:12)
[2022-01-19] MEDS: METOPROLOL TARTRATE 50 MG TABLET (FP) PO SCH ×2 (09:13→22:21)
[2022-01-19] MEDS: ATORVASTATIN CA 20 MG TABLET (FP) PO SCH (22:21)
[2022-01-19] MEDS: MELATONIN 5 MG TABLETS PO SCH (22:21)
[2022-01-20] MEDS: HEPARIN NA (PORCINE) 5,000 UNITS/ML 1ML VIAL SQ SCH ×4 (06:25→21:43)
[2022-01-20] MEDS: TAMSULOSIN HCL 0.4 MG CAP PO SCH (06:25)
[2022-01-20] MEDS: METOPROLOL TARTRATE 50 MG TABLET (FP) PO SCH ×2 (09:49→21:38)
[2022-01-20] MEDS: LISINOPRIL 10 MG TABLET PO SCH (09:49)
[2022-01-20] MEDS: amLODIPine BESYLATE 5 MG TABLET (FP) PO SCH (09:49)
[2022-01-20] MEDS: PANTOPRAZOLE 40 MG TABLET PO SCH (09:49)
[2022-01-20] MEDS: ASPIRIN 81 MG CHEWABLE TABLETS PO SCH (09:49)
[2022-01-20] MEDS: SENNOSIDES 8.6MG TABLET (FP) PO PRN (21:39)
[2022-01-20] MEDS: ATORVASTATIN CA 20 MG TABLET (FP) PO SCH (21:40)
[2022-01-20] MEDS: MELATONIN 5 MG TABLETS PO SCH (21:40)
[2022-01-21] MEDS: TAMSULOSIN HCL 0.4 MG CAP PO SCH (06:00)
[2022-01-21] MEDS: HEPARIN NA (PORCINE) 5,000 UNITS/ML 1ML VIAL SQ SCH ×3 (06:02→21:14)
[2022-01-21] MEDS: ASPIRIN 81 MG CHEWABLE TABLETS PO SCH (09:58)
[2022-01-21] MEDS: amLODIPine BESYLATE 5 MG TABLET (FP) PO SCH (09:59)
[2022-01-21] MEDS: METOPROLOL TARTRATE 50 MG TABLET (FP) PO SCH ×2 (09:59→21:15)
[2022-01-21] MEDS: PANTOPRAZOLE 40 MG TABLET PO SCH (09:59)
[2022-01-21] MEDS: LISINOPRIL 10 MG TABLET PO SCH (09:59)
[2022-01-21] MEDS: ATORVASTATIN CA 20 MG TABLET (FP) PO SCH (21:15)
[2022-01-21] MEDS: MELATONIN 5 MG TABLETS PO SCH (21:16)
[2022-01-22] MEDS: TAMSULOSIN HCL 0.4 MG CAP PO SCH (06:15)
[2022-01-22] MEDS: HEPARIN NA (PORCINE) 5,000 UNITS/ML 1ML VIAL SQ SCH (06:16)
[2022-01-22] MEDS: LISINOPRIL 10 MG TABLET PO SCH (09:12)
[2022-01-22] MEDS: METOPROLOL TARTRATE 50 MG TABLET (FP) PO SCH (09:13)
[2022-01-22] MEDS: PANTOPRAZOLE 40 MG TABLET PO SCH (09:13)
[2022-01-22] MEDS: ASPIRIN 81 MG CHEWABLE TABLETS PO SCH (09:13)
[2022-01-22] MEDS: amLODIPine BESYLATE 5 MG TABLET (FP) PO SCH (09:13)
[2022-01-22 09:14] VITALS: BP 113/56; PULSE 87; TEMP 97.8
== END 2022-01-22 13:36 | DRG 683 ==
LOC: JER 15:40 → JERBED 18:12 → J4W 01-13 14:57 → J4S 01-15 14:47
PROVIDERS: ADMIT Internal Medicine; ATTEND Internal Medicine
DX: N17.9 Acute kidney failure, unspecified (principal); M62.82 Rhabdomyolysis; J98.11 Atelectasis; I50.32 Chronic diastolic (congestive) heart failure; I42.1 Obstructive hypertrophic cardiomyopathy; C61 Malignant neoplasm of prostate; E11.9 Type 2 diabetes mellitus without complications; E78.5 Hyperlipidemia, unspecified; K21.9 Gastro-esophageal reflux disease without esophagitis; D72.829 Elevated white blood cell count, unspecified; I11.0 Hypertensive heart disease with heart failure; I34.0 Nonrheumatic mitral (valve) insufficiency; F41.8 Other specified anxiety disorders; S09.8XXA Other specified injuries of head, initial encounter; F03.90 Unspecified dementia, unspecified severity, without behavioral disturbance, psychotic disturbance, mood disturbance, and anxiety; I25.10 Atherosclerotic heart disease of native coronary artery without angina pectoris; K59.00 Constipation, unspecified; G47.00 Insomnia, unspecified; M50.31 Other cervical disc degeneration, high cervical region; M48.02 Spinal stenosis, cervical region; R29.6 Repeated falls; F31.9 Bipolar disorder, unspecified; Z88.0 Allergy status to penicillin; W18.39XA Other fall on same level, initial encounter; Y92.098 Other place in other non-institutional residence as the place of occurrence of the external cause
CPT/HCPCS: 36415; 70450-TC; 71045-TC-FY; 72125-TC; 76775-TC; 80048; 80053; 80061; 81003; 82550; 82553; 83735; 84100; 84443; 84484; 85025; 85027; 85610; 85730; 87086; 93005; 93010; 93880-TC; 97116-GP; 97162-GP; 99285-25; C9803-CS; J1644; U0003; U0005

== ENCOUNTER 2022-06-05 18:42 | Inpatient (IN) | payer OTHER ==
[2022-06-05] MEDS ORDERED: AMIODARONE HCL 150 MG/3 ML VIAL ONE (19:29)
[2022-06-05] MEDS ORDERED: MAGNESIUM SULFATE IN WATER 2 GM/50 ML IVPB IVPB ONE (19:40)
[2022-06-05] MEDS ORDERED: AMIODARONE IN DEXTROSE,ISO-OSM 150 MG/100 ML BAG ONE ×2 (19:40→20:30)
[2022-06-05] MEDS ORDERED: MAGNESIUM SULF 50% (8.12 MEQ/2 ML-1 GM VIAL) ONE (19:43)
[2022-06-05] MEDS ORDERED: CALCIUM CHLORIDE 1 GM/10 ML *DISP.SYRIN ONE (19:43)
[2022-06-05] MEDS ORDERED: MIDAZOLAM IN 0.9 % SOD.CHLORID 1 MG/1 ML PLAST..BAG ONE ×2 (19:49→19:54)
[2022-06-05] MEDS ORDERED: MIDAZOLAM HCL 2 MG/2 ML SINGLE DOSE VIAL ONE (19:54)
[2022-06-05] MEDS ORDERED: AMIODARONE IN DEXTROSE,ISO-OSM 360 MG/200 ML BAG ONE (20:33)
[2022-06-05] MEDS ORDERED: ACETAMINOPHEN 325 MG TABLET (FP) PO PRN (20:48)
[2022-06-05] MEDS ORDERED: AMIODARONE HCL INJECTION 150 MG in DEXTROSE 5%-WATER - 100 ML IVPB ONE (20:57)
[2022-06-05] MEDS ORDERED: FENTANYL NS IVPB 500 MCG/100 ML BAG IVPB ONE (21:02)
[2022-06-05] MEDS ORDERED: AMIODARONE IN DEXTROSE,ISO-OSM 150 MG/100 ML BAG IVPB ONE (21:05)
[2022-06-05] MEDS: FENTANYL NS IVPB 500 MCG/100 ML BAG IVPB SCH (21:14)
[2022-06-05 21:23] LABS: BASO % 0.6 % (0-2.0); EOS % 0.8 % (0-4.5); HEMOGLOBIN 9.2 GM/dL (11.7-16.9); LYMPH % 29.6 % (8-40); MCH 30.8 pg (25.7-33.7); MCHC 32.8 g/dl (32.0-35.9); MEAN CELL VOLUME 93.9 fl (80-96); MEAN PLT VOLUME 8.1 fl (7.5-11.1); MONO % 0.3 % (3.8-10.2); NEUT % 68.7 % (42.8-82.8); PLATELET COUNT 253 10^3/uL (134-434); RBC 2.98 M/mm3 (4.00-5.60); RDW 14.8 % (11.9-15.9); WHITE BLOOD COUNT 25.7 K/mm3 (4.0-10.0)
[2022-06-05] MEDS ORDERED: MIDAZOLAM IN 0.9 % SOD.CHLORID 100 MG/100 ML PLAST..BAG IVPB SCH (21:30)
[2022-06-05 21:35] LABS: INR 1.09 (0.83-1.09); PROTHROMBIN TIME (PATIENT) 12.6 SEC (9.7-13.0)
[2022-06-05 21:37] LABS: ACTIVATED PTT 31.6 SECONDS (25.2-36.5)
[2022-06-05 21:42] LABS: LACTIC ACID 9.2 mmol/L (0.4-2.0)
[2022-06-05 21:43] LABS: ALBUMIN 2.7 g/dl (3.4-5.0); BLOOD UREA NITROGEN 19.9 mg/dL (7-18); CALCIUM 8.6 mg/dL (8.5-10.1); MAGNESIUM 3.9 mg/dL (1.8-2.4)
[2022-06-05 21:47] LABS: CREATININE 1.3 mg/dL (0.55-1.3); PHOSPHOROUS 4.9 mg/dL (2.5-4.9); TOT PROT 4.8 g/dl (6.4-8.2)
[2022-06-05 21:57] LABS: ANISOCYTOSIS 1+; MACROCYTOSIS 0; OVALOCYTE 1+
[2022-06-05 22:05] LABS: EPI CELLS 1 /uL (0-25.1); HYALINE CASTS 1 /uL (0-3.1); PH,URINE 6.5 (5.0-8.0); URINE APPEARANCE CLEAR; URINE BACTERIA 1585 /uL (0-1359); URINE BILIRUBIN NEGATIVE (NEGATIVE); URINE COLOR YELLOW; URINE GLUCOSE (UA) 3+ (NEGATIVE); URINE KETONE NEGATIVE (NEGATIVE); URINE LEUK ESTERASE TRACE (NEGATIVE); URINE NITRITE POSITIVE (NEGATIVE); URINE PROTEIN 2+ (NEGATIVE); URINE RBC 12 /uL (0-23.9); URINE UROBILINOGEN 0.2 mg/dL (0.2-1.0); URINE WBC 145 /uL (0-25.8)
[2022-06-05] MEDS ORDERED: CEFEPIME HCL/D5W 2 GM/50 ML BAG IVPB SCH (22:15)
[2022-06-05] MEDS: DOCUSATE NA 100 MG/10 ML UNIT-DOSE CUPS PO SCH (22:40)
[2022-06-05] MEDS: SENNOSIDES 8.8 MG/5 ML BULK BOTTLE NGT SCH (22:45)
[2022-06-05] MEDS: CHLORHEXIDINE GLUCONATE 4% CLEANSER FOR DECOLONIZATION TP SCH (23:00)
[2022-06-05 23:18] LABS: BILIRUBIN,TOTAL 0.4 mg/dL (0.2-1)
[2022-06-05] MEDS: PROPOFOL 1,000,000 MCG/100 ML VIAL IVPB SCH (23:31)
[2022-06-06 00:25] VITALS: BMI 21.9
[2022-06-06] MEDS: CEFEPIME 2 GM in DEXTROSE 5%-WATER 100 ML IVPB SCH ×2 (00:35→06:52)
[2022-06-06] MEDS ORDERED: TRIPLE LUMEN FLUSH 4 ML ML IVPUSH PRN (01:19)
[2022-06-06] MEDS: MUPIROCIN 2% TOPICAL OINTMENT FOR DECOLONIZATION NS SCH ×3 (03:33→23:13)
[2022-06-06] MEDS ORDERED: AMIODARONE IN DEXTROSE,ISO-OSM 360 MG/200 ML BAG ONE (06:47)
[2022-06-06] MEDS: DOCUSATE NA 100 MG/10 ML UNIT-DOSE CUPS PO SCH ×3 (06:51→23:13)
[2022-06-06 07:37] LABS: ARTERIAL BLD GAS O2 SATURATION 99.6 % (95-98); ARTERIAL BLOOD GAS BASE EXCESS -9.2 mmol/L (-2-2); ARTERIAL BLOOD GAS PO2 281.9 mmHg (80-100); ARTERIAL BLOOD GAS pH 7.267 (7.350-7.450)
[2022-06-06 07:38] LABS: ALLENS TEST POSITIVE; VENT MODE A/C; VENT RATE 16
[2022-06-06 07:58] LABS: INR 1.06 (0.83-1.09); PROTHROMBIN TIME (PATIENT) 12.2 SEC (9.7-13.0)
[2022-06-06 07:59] LABS: ACTIVATED PTT 27.6 SECONDS (25.2-36.5)
[2022-06-06] MEDS: FENTANYL NS IVPB 500 MCG/100 ML BAG IVPB SCH ×4 (08:00→23:20)
[2022-06-06 08:10] LABS: CHLORIDE 101 mmol/L (98-107); SODIUM 138 mmol/L (136-145)
[2022-06-06 08:17] LABS: CALCIUM 9.7 mg/dL (8.5-10.1)
[2022-06-06 08:19] LABS: ANION GAP 15 MMOL/L (8-16); BLOOD UREA NITROGEN 26.8 mg/dL (7-18); CO2 23 mmol/L (21-32); GLUCOSE,RANDOM 245 mg/dL (74-106); MAGNESIUM 3.6 mg/dL (1.8-2.4)
[2022-06-06 08:21] LABS: PHOSPHOROUS 4.5 mg/dL (2.5-4.9)
[2022-06-06 08:23] LABS: BILIRUBIN,TOTAL 0.4 mg/dL (0.2-1)
[2022-06-06 08:25] LABS: ALK PHOS 96 U/L (45-117)
[2022-06-06 09:15] LABS: ALBUMIN 3.9 g/dl (3.4-5.0); SGOT/AST 1765 U/L (15-37); SGPT/ALT 1402 U/L (13-61); TOT PROT 7.1 g/dl (6.4-8.2)
[2022-06-06] MEDS: NOREPINEPHRINE BITARTRATE 16,000 MCG in SODIUM CHLORIDE 484 ML IV SCH (10:24)
[2022-06-06] MEDS: PANTOPRAZOLE SODIUM 40 MG VIAL IVPUSH SCH (10:25)
[2022-06-06 11:45] LABS: BASO % 0.1 % (0-2.0); HEMATOCRIT 28.7 % (35.4-49); HEMOGLOBIN 9.8 GM/dL (11.7-16.9); LYMPH % 7.9 % (8-40); MEAN CELL VOLUME 91.1 fl (80-96); MEAN PLT VOLUME 8.2 fl (7.5-11.1); MONO % 7.9 % (3.8-10.2); NEUT % 84.1 % (42.8-82.8); PLATELET COUNT 236 10^3/uL (134-434); RBC 3.15 M/mm3 (4.00-5.60); RDW 14.6 % (11.9-15.9); WHITE BLOOD COUNT 17.4 K/mm3 (4.0-10.0)
[2022-06-06] MEDS: INSULIN SLIDING SCALE (NOVOLOG) 1 VIAL SQ SCH ×2 (11:48→18:20)
[2022-06-06 13:27] LABS: LACTIC ACID 5.6 mmol/L (0.4-2.0)
[2022-06-06] MEDS: PROPOFOL 1,000,000 MCG/100 ML VIAL IVPB SCH ×2 (15:00→23:13)
[2022-06-06] MEDS ORDERED: SODIUM CHLORIDE 0.9% 500 ML INFUS.BAG IV ONE (15:59)
[2022-06-06] MEDS: CEFEPIME 1 GM in DEXTROSE 5%-WATER 100 ML IVPB SCH (17:55)
[2022-06-06] MEDS: CLINDAMYCIN 600MG PREMIX IVPB 600 MG/50 ML BAG IVPB SCH (17:55)
[2022-06-06 18:09] LABS: ARTERIAL BLD GAS O2 SATURATION 98.9 % (95-98); ARTERIAL BLOOD GAS BASE EXCESS -6.8 mmol/L (-2-2); ARTERIAL BLOOD GAS PO2 161.7 mmHg (80-100); ARTERIAL BLOOD GAS pH 7.286 (7.350-7.450)
[2022-06-06 18:11] LABS: VENT MODE A/C; VENT RATE 16
[2022-06-06] MEDS ORDERED: AMIODARONE IN DEXTROSE,ISO-OSM 360 MG/200 ML BAG IV SCH (19:15)
[2022-06-06] MEDS: CHLORHEXIDINE GLUCONATE 4% CLEANSER FOR DECOLONIZATION TP SCH (23:13)
[2022-06-06] MEDS: SENNOSIDES 8.8 MG/5 ML BULK BOTTLE NGT SCH (23:13)
[2022-06-07] MEDS: CLINDAMYCIN 600MG PREMIX IVPB 600 MG/50 ML BAG IVPB SCH ×3 (02:09→18:05)
[2022-06-07 05:47] LABS: ARTERIAL BLD GAS O2 SATURATION 83.1 % (95-98); ARTERIAL BLOOD GAS BASE EXCESS -2.7 mmol/L (-2-2); ARTERIAL BLOOD GAS PO2 50.9 mmHg (80-100); ARTERIAL BLOOD GAS pH 7.323 (7.350-7.450)
[2022-06-07 05:49] LABS: ALLENS TEST POSITIVE; VENT RATE 16
[2022-06-07] MEDS: NOREPINEPHRINE BITARTRATE 16,000 MCG in SODIUM CHLORIDE 484 ML IV SCH (07:00)
[2022-06-07] MEDS: CEFEPIME 1 GM in DEXTROSE 5%-WATER 100 ML IVPB SCH (07:00)
[2022-06-07] MEDS: DOCUSATE NA 100 MG/10 ML UNIT-DOSE CUPS PO SCH ×2 (07:10→12:30)
[2022-06-07 07:34] LABS: BASO % 0.2 % (0-2.0); EOS % 0.5 % (0-4.5); HEMATOCRIT 24.7 % (35.4-49); HEMOGLOBIN 8.6 GM/dL (11.7-16.9); LYMPH % 7.6 % (8-40); MCH 31.7 pg (25.7-33.7); MCHC 34.8 g/dl (32.0-35.9); MEAN CELL VOLUME 91.2 fl (80-96); NEUT % 81.7 % (42.8-82.8); PLATELET COUNT 168 10^3/uL (134-434); RBC 2.71 M/mm3 (4.00-5.60); WHITE BLOOD COUNT 16.1 K/mm3 (4.0-10.0)
[2022-06-07 07:38] LABS: INR 1.17 (0.83-1.09); PROTHROMBIN TIME (PATIENT) 13.5 SEC (9.7-13.0)
[2022-06-07 07:41] LABS: ACTIVATED PTT 26.6 SECONDS (25.2-36.5)
[2022-06-07 07:53] LABS: CALCIUM 8.8 mg/dL (8.5-10.1)
[2022-06-07] MEDS: INSULIN SLIDING SCALE (NOVOLOG) 1 VIAL SQ SCH ×3 (07:53→18:05)
[2022-06-07 07:54] LABS: MAGNESIUM 3.2 mg/dL (1.8-2.4)
[2022-06-07 07:56] LABS: PHOSPHOROUS 5.1 mg/dL (2.5-4.9)
[2022-06-07 07:57] LABS: CREATININE 3.4 mg/dL (0.55-1.3)
[2022-06-07 07:58] LABS: BILIRUBIN,TOTAL 0.6 mg/dL (0.2-1); TOT PROT 5.6 g/dl (6.4-8.2)
[2022-06-07] MEDS ORDERED: CEFEPIME 1 GM in DEXTROSE 5%-WATER 100 ML IVPB SCH (08:14)
[2022-06-07] MEDS: FENTANYL NS IVPB 500 MCG/100 ML BAG IVPB SCH (09:55)
[2022-06-07] MEDS: PANTOPRAZOLE SODIUM 40 MG VIAL IVPUSH SCH (09:57)
[2022-06-07] MEDS: MUPIROCIN 2% TOPICAL OINTMENT FOR DECOLONIZATION NS SCH (09:57)
[2022-06-07] MEDS ORDERED: AMIODARONE HCL 200 MG TABLET NGT SCH (10:00)
[2022-06-07] MEDS: PROPOFOL 1,000,000 MCG/100 ML VIAL IVPB SCH (10:01)
[2022-06-07] MEDS ORDERED: SODIUM CHLORIDE 1,000 ML IV SCH (12:15)
[2022-06-07] MEDS ORDERED: SODIUM ZIRCONIUM CYCLOSILICATE (LOKELMA) 5 GM PACKET NGT ONE (12:15)
[2022-06-07 14:56] VITALS: RESP 20
[2022-06-07] MEDS ORDERED: MORPHINE SULFATE/0.9% NACL/PF 100 MG/100 ML BAG IVPB SCH (16:00)
[2022-06-07 18:26] VITALS: BP 109/65; PULSE 92; TEMP 98.3
== END 2022-06-07 19:11 | disposition expired | DRG 208 ==
LOC: JER 18:42 → JERBED 20:52 → JICU 22:00
PROVIDERS: ADMIT Internal Medicine Pulmonary Disease; ATTEND Internal Medicine Pulmonary Disease
PROC: 0BH17EZ Insertion of Endotracheal Airway into Trachea, Via Natural or Artificial Opening (ICD-10-PCS; principal; 2022-06-05)
PROC: 5A1945Z Respiratory Ventilation, 24-96 Consecutive Hours (ICD-10-PCS; 2022-06-05)
PROC: 05H933Z Insertion of Infusion Device into Right Brachial Vein, Percutaneous Approach (ICD-10-PCS; 2022-06-06)
PROC: 0W9930Z Drainage of Right Pleural Cavity with Drainage Device, Percutaneous Approach (ICD-10-PCS; 2022-06-06)
DX: U07.1 COVID-19 (principal); S06.6XAA Traumatic subarachnoid hemorrhage with loss of consciousness status unknown, initial encounter; S36.116A Major laceration of liver, initial encounter; J96.00 Acute respiratory failure, unspecified whether with hypoxia or hypercapnia; S22.49XA Multiple fractures of ribs, unspecified side, initial encounter for closed fracture; F31.89 Other bipolar disorder; J93.83 Other pneumothorax; N17.9 Acute kidney failure, unspecified; I42.1 Obstructive hypertrophic cardiomyopathy; N39.0 Urinary tract infection, site not specified; J98.11 Atelectasis; E87.20 Acidosis, unspecified; S02.40CA Maxillary fracture, right side, initial encounter for closed fracture; I10 Essential (primary) hypertension; I25.10 Atherosclerotic heart disease of native coronary artery without angina pectoris; K59.00 Constipation, unspecified; R29.6 Repeated falls; I46.9 Cardiac arrest, cause unspecified; D72.829 Elevated white blood cell count, unspecified; Z85.46 Personal history of malignant neoplasm of prostate; E87.5 Hyperkalemia; I34.0 Nonrheumatic mitral (valve) insufficiency; F41.8 Other specified anxiety disorders; E78.5 Hyperlipidemia, unspecified; G30.9 Alzheimer's disease, unspecified; F02.80 Dementia in other diseases classified elsewhere, unspecified severity, without behavioral disturbance, psychotic disturbance, mood disturbance, and anxiety; S05.11XA Contusion of eyeball and orbital tissues, right eye, initial encounter; W18.39XA Other fall on same level, initial encounter; Y92.098 Other place in other non-institutional residence as the place of occurrence of the external cause; Z88.0 Allergy status to penicillin; Z66 Do not resuscitate
CPT/HCPCS: 36415; 36600; 70450-TC; 71045-TC-FY; 71250-TC; 74177-TC; 80053; 81003; 82550; 82553; 82803; 82962; 83605; 83690; 83735; 84100; 84443; 84484; 85025; 85610; 85730; 86850; 86900; 86901; 87040; 87086; 87186; 93005; 93010; 93306-TC; 94002; 99291; C9803-CS; J0282; U0003; U0005